=== PATIENT | female | born 1990 | race Caucasian/White ===

== ENCOUNTER 2019-02-14 17:35 | Emergency (ER) | payer BC, MEDICAID ==
[~2019-02-14] VITALS: Ht 175.3 cm; Wt 79.0 kg
[~2019-02-14 17:35] MED LIST: ACET-2119 PO; ALBU6.7H9 INH; PREN1COM10 PO
[2019-02-14 17:44] VITALS: BP 110/61
--- NOTE | 2019-02-14 18:26 | NUR ---
pt heart checked with ultrasound hr 146.vaginal examination performed by courtney mtz no visible bleeding .pt significant other at bedside.denies any ques or concern all ques answered by courtney mtz.
[2019-02-14 18:50] LABS: CLARITY,URINE CLOUDY (Clear); COLOR,URINE YELLOW (Yellow); GLUCOSE, URINE NEGATIVE (Neg); KETONES,URINE NEGATIVE (Neg); LEUKOCYTE ESTERASE ,URINE MODERATE (Neg); NITRITES, URINE NEGATIVE (Neg); OCCULT BLOOD,URINE LARGE (Neg); PROTEIN,URINE NEGATIVE (Neg); UROBILINOGEN,URINE 0.2 E.U/dL (0.2-1.0)
[2019-02-14 18:54] LABS: UA COLLECTION TYPE CLN CATCH MIDSTREAM
[2019-02-14 19:03] LABS: AMORPHOUS PHOSPHATES 4+; BACTERIA,URINE 1+ /HPF (Neg); RBC,URINE NONE SEEN /HPF (0-2); SQUAMOUS EPITHELIAL CELL,UR MODERATE /LPF (FEW)
[2019-02-14] MEDS ORDERED: NITR100C PO (19:09)
== END 2019-02-14 19:17 | disposition home or self-care (01) ==
LOC: ER 17:36
DX: O46.92 Antepartum hemorrhage, unspecified, second trimester (principal); O23.42 Unspecified infection of urinary tract in pregnancy, second trimester; O26.892 Other specified pregnancy related conditions, second trimester; K21.9 Gastro-esophageal reflux disease without esophagitis; Z3A.19 19 weeks gestation of pregnancy; Z56.0 Unemployment, unspecified; Z90.89 Acquired absence of other organs; Z79.899 Other long term (current) drug therapy
CPT/HCPCS: 81001; 87088; 99284

== ENCOUNTER 2019-04-09 11:25 | Emergency (ER) | payer MEDICAID ==
[~2019-04-09] VITALS: Ht 170.2 cm; Wt 84.0 kg
[~2019-04-09 11:25] MED LIST changes: +NITR100C PO
[2019-04-09] MEDS ORDERED: INHA1INH2 (13:42)
[2019-04-09 13:54] VITALS: BP 120/43
== END 2019-04-09 13:56 | disposition home or self-care (01) ==
LOC: ER 11:26
DX: O99.512 Diseases of the respiratory system complicating pregnancy, second trimester (principal); J40 Bronchitis, not specified as acute or chronic; K21.9 Gastro-esophageal reflux disease without esophagitis; Z90.89 Acquired absence of other organs; Z79.899 Other long term (current) drug therapy; Z56.0 Unemployment, unspecified; Z3A.27 27 weeks gestation of pregnancy
CPT/HCPCS: 71045; 99283